=== PATIENT | male | born 1965 | race Caucasian/White ===

== ENCOUNTER → 2016-03-19 | Outpatient (CLI) | payer OTHER ==
[~2016-03-19] MED LIST: AMBIEN10 MG PO; CYMBALTA20 MG; DAILY MULTI-VIT1 TA2 PO; IBUPROFEN200 M1 PO; KEFLEX250 M1 PO; PROTONIX20 M1 PO; TEGRETOL-XR400 MG PO; VALIUM 2MG T2 MG/TAB PO; VIIBRYD20 MG PO; ZOFRAN ODT8 M1 PO
== END ==
LOC: LAB 10:34
DX: Z00.00 Encounter for general adult medical examination without abnormal findings (principal); Z12.5 Encounter for screening for malignant neoplasm of prostate; G40.219 Localization-related (focal) (partial) symptomatic epilepsy and epileptic syndromes with complex partial seizures, intractable, without status epilepticus

== ENCOUNTER 2016-08-20 10:32 | Emergency (ER) | payer OTHER ==
[~2016-08-20] VITALS: Ht 188 cm; Wt 127.3 kg
[~2016-08-20 10:32] MED LIST changes: -KEFLEX250 M1 PO; -PROTONIX20 M1 PO
[2016-08-20 10:36] VITALS: BP 160/95
[2016-08-20] MEDS ORDERED: PROTONIX20 M1 PO (10:38)
[2016-08-20] MEDS ORDERED: KEFLEX250 M1 PO (12:14)
== END 2016-08-20 12:37 | disposition home or self-care (01) ==
LOC: ED 10:32
DX: S61.241A Puncture wound with foreign body of left index finger without damage to nail, initial encounter (principal); W29.4XXA Contact with nail gun, initial encounter; Y92.009 Unspecified place in unspecified non-institutional (private) residence as the place of occurrence of the external cause; I10 Essential (primary) hypertension

== ENCOUNTER → 2017-04-01 | Outpatient (CLI) | payer BC ==
[~2017-04-01] MED LIST changes: +KEFLEX250 M1 PO; +PROTONIX20 M1 PO
== END ==
LOC: RAD 14:16
DX: I82.431 Acute embolism and thrombosis of right popliteal vein (principal); M79.605 Pain in left leg

== ENCOUNTER → 2017-04-29 | Outpatient (CLI) | payer BC | LOC: RAD 07:53 | DX: M79.671 Pain in right foot (principal); Z88.0 Allergy status to penicillin ==

== ENCOUNTER 2018-10-05 13:22 | Emergency (ER) | payer BC ==
[~2018-10-05] VITALS: Ht 188 cm; Wt 77.3 kg
[2018-10-05] MEDS ORDERED: FLOMAX0.4 MG PO (13:29)
[2018-10-05] MEDS ORDERED: ONE DAILY MULTI1 TA1 PO (13:30)
[2018-10-05 15:16] LABS: EOS % 0.2 % (0.0-4.0); LYMPH# 1.2 (1.50-4.00); MEAN CELL VOLUME 94 fl (78-100); MEAN CORPUSCULAR HEMOGLOBIN 32 pg (27-31); MEAN CORPUSCULAR HGB CONC 34 g/dL (33-37); MEAN PLATELET VOLUME 10.3 fl (7.4-10.4); MONO # 0.3 (0.20-0.80); PLATELET COUNT 133 K/mm3 (130-400); RED BLOOD COUNT 4.37 M/mm3 (4.20-5.60); RED CELL DISTRIBUTION WIDTH 12.4 % (11.5-14.5); WHITE BLOOD COUNT 4.6 K/mm3 (4.8-10.8)
[2018-10-05 15:25] LABS: ALBUMIN 4.1 g/dL (3.5-5.0)
[2018-10-05 15:26] LABS: POTASSIUM 3.7 mmol/L (3.5-5.1); SODIUM 143 mmol/L (136-145)
[2018-10-05 15:28] LABS: GLUCOSE 122 mg/dL (75-110); TOTAL PROTEIN 6.4 g/dL (6.4-8.3)
[2018-10-05 15:29] LABS: CARBON DIOXIDE 27 mmol/L (22-29)
[2018-10-05 15:33] LABS: AST-SGOT 21 U/L (5-34)
[2018-10-05 15:34] LABS: ALT/SGPT 16 U/L (0-55)
[2018-10-05 15:35] LABS: LIPASE 42 U/L (8-78)
[2018-10-05 15:43] LABS: TROPONIN-I < 0.03 ng/mL (<0.030)
[2018-10-05 15:44] LABS: URINE APPEARANCE HAZY; URINE BILIRUBIN NEGATIVE (NEGATIVE); URINE BLOOD NEGATIVE (NEGATIVE); URINE COLOR DK YELLOW; URINE GLUCOSE NEGATIVE (NEGATIVE); URINE KETONE NEGATIVE (NEGATIVE); URINE LEUKOCYTE ESTERASE TRACE (NEGATIVE); URINE NITRATE NEGATIVE (NEGATIVE); URINE PROTEIN(semi-quant) TRACE mg/dL (NEGATIVE); URINE UROBILINOGEN 1 mg/dL (NORMAL)
[2018-10-05 15:45] LABS: URINE MUCUS PRESENT (NOT PRESENT)
[2018-10-05 16:00] LABS: TOTAL BILIRUBIN 0.7 mg/dL (0.2-1.2)
[2018-10-05 16:20] VITALS: BP 127/61
== END 2018-10-05 16:25 | disposition home or self-care (01) ==
LOC: ED 13:22
PROVIDERS: Family Medicine
DX: R10.11 Right upper quadrant pain (principal); E66.9 Obesity, unspecified; F32.9 Major depressive disorder, single episode, unspecified; K21.9 Gastro-esophageal reflux disease without esophagitis; G47.00 Insomnia, unspecified; Z98.84 Bariatric surgery status; Z88.0 Allergy status to penicillin
CPT/HCPCS: J2550; J2765

== ENCOUNTER → 2018-10-06 | Outpatient (CLI) | payer BC ==
[2018-10-05 16:20] VITALS: BP 127/61
[~2018-10-06] MED LIST changes: +FLOMAX0.4 MG PO; +ONE DAILY MULTI1 TA1 PO
== END ==
LOC: RAD 06:57
DX: K82.8 Other specified diseases of gallbladder (principal); K83.8 Other specified diseases of biliary tract

== ENCOUNTER → 2019-08-14 | Outpatient (CLI) | payer BC ==
[2019-08-14 09:17] LABS: HEMATOCRIT 45.8 % (42.0-52.0); HEMOGLOBIN 15.3 g/dL (13.5-18.0); LYMPH# 1.3 (1.50-4.00); MEAN CELL VOLUME 95 fl (78-100); MEAN CORPUSCULAR HEMOGLOBIN 32 pg (27-31); MEAN CORPUSCULAR HGB CONC 33 g/dL (33-37); MEAN PLATELET VOLUME 10.1 fl (7.4-10.4); MONO # 0.3 (0.20-0.80); NEU # 2.2 (1.40-6.50); PLATELET COUNT 139 K/mm3 (130-400); RED BLOOD COUNT 4.81 M/mm3 (4.20-5.60); RED CELL DISTRIBUTION WIDTH 12.6 % (11.5-14.5); WHITE BLOOD COUNT 3.8 K/mm3 (4.8-10.8)
[2019-08-14 09:20] LABS: CALCIUM 8.7 mg/dL (8.3-10.5)
[2019-08-14 09:21] LABS: TOTAL PROTEIN 6.3 g/dL (6.4-8.3)
[2019-08-14 09:23] LABS: TOTAL BILIRUBIN 0.6 mg/dL (0.2-1.2)
[2019-08-14 16:26] LABS: PTH,INTACT 71.9 pg/mL (6.6-88.9)
[2019-08-19 12:43] LABS: VITAMIN A 45.2 mcg/dL (())
== END ==
LOC: LAB 08:58
PROVIDERS: Surgery
DX: Z98.84 Bariatric surgery status (principal)

== ENCOUNTER → 2020-01-30 | Outpatient (CLI) | payer BC | LOC: LAB 07:27 | DX: U07.1 COVID-19 (principal) ==

== ENCOUNTER → 2020-03-31 | Outpatient (CLI) | payer BC ==
[2020-03-31 10:14] LABS: URINE APPEARANCE CLEAR; URINE BILIRUBIN NEGATIVE (NEGATIVE); URINE BLOOD NEGATIVE (NEGATIVE); URINE COLOR YELLOW; URINE GLUCOSE NEGATIVE (NEGATIVE); URINE KETONE NEGATIVE (NEGATIVE); URINE LEUKOCYTE ESTERASE NEGATIVE (NEGATIVE); URINE NITRATE NEGATIVE (NEGATIVE); URINE PROTEIN(semi-quant) 1+ mg/dL (NEGATIVE); URINE UROBILINOGEN NORMAL (NORMAL); URINE WBC 0-1 /hpf (0-3)
== END ==
LOC: LAB 09:22
PROVIDERS: Internal Medicine
DX: N40.0 Benign prostatic hyperplasia without lower urinary tract symptoms (principal)